=== PATIENT | female | born 1955 | race Two or more races ===

== ENCOUNTER 2024-08-31 17:35 | Inpatient (IN) | payer MEDICARE, OTHER ==
[~2024-08-31] VITALS: Ht 152.4 cm; Wt 104.8 kg
[2024-08-31] MEDS: IV NS 0.9% 1,000 ML BAG IV ONE (18:20)
[2024-08-31 18:34] LABS: BASOPHILS % (AUTO) 0.6 % (0.0-2.0); EOSINOPHILS # (AUTO) 0.1 K/uL (0.0-0.7); EOSINOPHILS % (AUTO) 0.8 % (0.0-6.0); HEMATOCRIT 40 % (33-45); HEMOGLOBIN 13.3 g/dL (11.5-14.8); LYMPHOCYTES # (AUTO) 0.7 K/uL (0.8-4.8); LYMPHOCYTES % (AUTO) 8.7 % (20.0-44.0); MEAN CORPUSCULAR HEMOGLOBIN 30 PG (26.0-33.0); MEAN CORPUSCULAR HGB CONC 34 g/dl (31.0-36.0); MEAN CORPUSCULAR VOLUME 89 fL (82-100); MONOCYTES # (AUTO) 0.6 K/uL (0.1-1.30); MONOCYTES % (AUTO) 6.9 % (2.0-12.0); PLATELET COUNT (AUTO) 260 K/uL (150-450); RED BLOOD CELL COUNT(AUTO) 4.45 MIL/uL (4.0-5.2); RED CELL DISTRIBUTION WIDTH 13.8 % (11.5-15.0); WHITE BLOOD COUNT (AUTO) 8.4 K/uL (4.3-11.0)
[2024-08-31 19:00] LABS: ALANINE AMINOTRANSFERASE 23 U/L (12-78); ALBUMIN 3.9 g/dL (3.4-5.0); ALCOHOL, BLOOD < 3 mg/dL (0-10); ALKALINE PHOSPHATASE 100 U/L (46-116); ASPARTATE AMINOTRANSFERASE 19 U/L (15-37); BILIRUBIN,DIRECT 0.2 mg/dL (0.0-0.2); CALCIUM, SERUM 9.8 mg/dL (8.5-10.1); CARBON DIOXIDE 28 mmol/L (21-32); CHLORIDE 102 mmol/L (98-107); GLUCOSE 102 mg/dL (74-106); POTASSIUM 3.3 mmol/L (3.5-5.1); SODIUM SERUM 139 mmol/L (136-145); TOTAL PROTEIN, SERUM 7.8 g/dL (6.4-8.2); UREA NITROGEN, BLOOD 21 mg/dL (7-18)
[2024-08-31 19:01] LABS: ACETAMINOPHEN 0 ug/ml (10-30); SALICYLATE 0.7 mg/dL (2.8-20.0)
[2024-08-31 20:08] LABS: APPEARANCE,URINE Clear (CLEAR); BILIRUBIN,URINE MODERATE (NEGATIVE); BLOOD, URINE Trace-intact Ery/uL (NEGATIVE); COLOR,URINE YELLOW (YELLOW); KETONES,URINE >=160 mg/dL (NEGATIVE); LEUKOCYTE ESTERASE ,URINE Negative (NEGATIVE); NITRITE, URINE Negative (NEGATIVE); PROTEIN,URINE >=300 mg/dl (NEGATIVE); UGLUCOSE Negative (NEGATIVE)
[2024-08-31 20:17] LABS: AMPHETAMINE, URINE NEGATIVE (NEGATIVE); BARBITURATE, URINE NEGATIVE (NEGATIVE); BENZODIAZEPINE, URINE NEGATIVE (NEGATIVE); CANNABINOID, URINE NEGATIVE (NEGATIVE); COCCAINE, URINE NEGATIVE (NEGATIVE); OPIATE, URINE NEGATIVE (NEGATIVE); PHENCYCLIDINE SCREEN,URINE NEGATIVE (NEGATIVE)
[2024-08-31 20:28] LABS: ADD URINE CULTURE NO; BACTERIA,URINE Few /HPF (None Seen); SQUAMOUS EPITHELIAL CELL,UR Few /HPF (None Seen)
[2024-08-31] MEDS ORDERED: MIDAZOLAM HCL 5 MG/5ML VIAL ONE (21:15)
[2024-08-31] MEDS: MIDAZOLAM HCL 5 MG/5ML VIAL IV ONE (21:20)
[2024-08-31 21:55] VITALS: O2SAT 96
[2024-08-31] MEDS ORDERED: MAG HYDROX/AL HYDROX/SIMETH 30 ML UDC PO PRN (22:30)
[2024-08-31] MEDS ORDERED: MAGNESIUM HYDROXIDE 30 ML UDC PO PRN (22:30)
[2024-08-31] MEDS ORDERED: ONDANSETRON HCL/PF 4 MG/2 ML VIAL IVP PRN (22:30)
[2024-08-31] MEDS ORDERED: Z GUARD REMEDY 4 OZ OINT TP PRN (22:30)
[2024-08-31] MEDS: CEFTRIAXONE 1GM BAG (ER ONLY) 50 ML IV ONE (23:12)
[2024-08-31] MEDS: CEFTRIAXONE 1 G in IV D5W 50 ML IV SCH (23:16)
[2024-08-31] MEDS: POTASSIUM CHLORIDE 20 MEQ TAB.PRT.SR PO ONE (23:22)
[2024-09-01 04:20] VITALS: BP 183/103; TEMP 98.8; O2SAT 96
[2024-09-01] MEDS: hydrALAZINE HCL IV 20 MG VIAL IV PRN (05:25)
[2024-09-01] MEDS ORDERED: hydrALAZINE HCL IV 20 MG VIAL IV PRN (05:30)
[2024-09-01 07:54] LABS: BASOPHILS % (AUTO) 0.5 % (0.0-2.0); EOSINOPHILS # (AUTO) 0.1 K/uL (0.0-0.7); EOSINOPHILS % (AUTO) 0.6 % (0.0-6.0); HEMATOCRIT 39 % (33-45); HEMOGLOBIN 13.2 g/dL (11.5-14.8); LYMPHOCYTES # (AUTO) 0.7 K/uL (0.8-4.8); LYMPHOCYTES % (AUTO) 7.9 % (20.0-44.0); MEAN CORPUSCULAR HEMOGLOBIN 31 PG (26.0-33.0); MEAN CORPUSCULAR HGB CONC 34 g/dl (31.0-36.0); MEAN CORPUSCULAR VOLUME 90 fL (82-100); MONOCYTES # (AUTO) 0.5 K/uL (0.1-1.30); MONOCYTES % (AUTO) 6.4 % (2.0-12.0); NEUTROPHILS # (AUTO) 7.1 K/uL (1.8-8.9); NEUTROPHILS % (AUTO) 84.6 % (43.0-81.0); PLATELET COUNT (AUTO) 252 K/uL (150-450); RED BLOOD CELL COUNT(AUTO) 4.34 MIL/uL (4.0-5.2); RED CELL DISTRIBUTION WIDTH 14.1 % (11.5-15.0); WHITE BLOOD COUNT (AUTO) 8.4 K/uL (4.3-11.0)
[2024-09-01] MEDS: PANTOPRAZOLE 40 MG TABLET.DR PO SCH (07:55)
[2024-09-01 08:05] LABS: CALCIUM, SERUM 9.7 mg/dL (8.5-10.1); CREATININE 0.9 mg/dL (0.6-1.3); POTASSIUM 3.4 mmol/L (3.5-5.1)
[2024-09-01] MEDS ORDERED: QUET300T2 PO (08:07)
[2024-09-01 08:33] LABS: THYROID STIMULATING HORMONE 0.8 uIU/mL (0.358-3.74)
[2024-09-01] MEDS: POTASSIUM CHLORIDE 20 MEQ TAB.PRT.SR PO SCH (11:02)
[2024-09-01] MEDS: hydrALAZINE HCL 50 MG TABLET PO ONE (13:00)
[2024-09-01 14:11] LABS: THYROID STIMULATING HORMONE 1.1 uIU/mL (0.358-3.74)
[2024-09-01] MEDS: AMLODIPINE BESYLATE 5 MG TABLET PO SCH (15:29)
[2024-09-01] MEDS: LOSARTAN POTASSIUM 50 MG TABLET PO SCH (15:29)
[2024-09-01] MEDS: METOPROLOL TARTRATE 50 MG TABLET PO SCH (15:30)
[2024-09-01] MEDS: CEFTRIAXONE 2 G in IV D5W 100 ML IV SCH (20:50)
[2024-09-01] MEDS ORDERED: CEFTRIAXONE 1 G in IV D5W 50 ML IV SCH (21:00)
[2024-09-02] MEDS: ACETAMINOPHEN 325 MG TABLET PO PRN (00:37)
[2024-09-02 09:09] LABS: FOLIC ACID 16.1 ng/mL (>3.0)
[2024-09-02] MEDS: LOSARTAN POTASSIUM 50 MG TABLET PO STA (11:09)
[2024-09-02] MEDS: AMLODIPINE BESYLATE 5 MG TABLET PO STA (11:09)
[2024-09-02] MEDS: NIFEdipine XL (30MG) 30 MG TAB PO SCH (11:09)
[2024-09-02 15:20] LABS: CHOLESTEROL 191 mg/dL (<200); HDL CHOLESTEROL 89 mg/dL (40-60); LDL 85 mg/dL (0-99); TRIGLYCERIDES 75 mg/dL (30-150)
[2024-09-02] MEDS: hydrALAZINE HCL 50 MG TABLET PO SCH (18:42)
[2024-09-02] MEDS: LABETALOL HCL (100MG) 100 MG TABLET PO SCH (18:43)
[2024-09-02 20:00] VITALS: BP_SYST 101; BP_SYST 117; BP_DIAS 67; BP_DIAS 76; TEMP 97.3; TEMP 98.2; O2SAT 93; O2SAT 94
[2024-09-03] VITALS: BP 102/61; TEMP 97.6; O2SAT 94
[2024-09-03 05:00] VITALS: BP 149/84; TEMP 97.9; O2SAT 97
[2024-09-03] MEDS: AMLODIPINE BESYLATE 5 MG TABLET PO SCH (09:27)
[2024-09-03] MEDS: LOSARTAN POTASSIUM 50 MG TABLET PO SCH (09:27)
[2024-09-03] MEDS: CLOTRIMAZOLE 1% 15 GM TUBE TP SCH (09:28)
[2024-09-03] MEDS ORDERED: LABE100T15 PO (13:09)
[2024-09-03] MEDS ORDERED: AMLO-212 PO (13:09)
[2024-09-03] MEDS ORDERED: LOSA50TA39 PO (13:09)
[2024-09-03] MEDS ORDERED: NIFE-35 PO (13:09)
[2024-09-03] MEDS ORDERED: CEPH-570 PO (13:09)
[2024-09-03] MEDS ORDERED: HYDR-4077 PO (13:09)
[2024-09-03 14:46] VITALS: BP 151/89
[2024-09-06 06:07] LABS: VITAMIN B1 THIAMINE,WB 209.8 nmol/L (66.5-200.0)
== END 2024-09-03 16:30 | disposition home health service (06) | DRG 77 ==
LOC: ER 17:37 → TELE 22:10 → MED 09-03 10:58
PROVIDERS: ADMIT Nurse Practitioner Family; ATTEND Nurse Practitioner Acute Care
DX: I67.4 Hypertensive encephalopathy (principal); G92.8 Other toxic encephalopathy; N39.0 Urinary tract infection, site not specified; Z68.41 Body mass index [BMI] 40.0-44.9, adult; F05 Delirium due to known physiological condition; E87.6 Hypokalemia; E66.9 Obesity, unspecified; T43.595A Adverse effect of other antipsychotics and neuroleptics, initial encounter; Y92.009 Unspecified place in unspecified non-institutional (private) residence as the place of occurrence of the external cause; E66.01 Morbid (severe) obesity due to excess calories; I10 Essential (primary) hypertension; I16.0 Hypertensive urgency; B96.89 Other specified bacterial agents as the cause of diseases classified elsewhere; F32.9 Major depressive disorder, single episode, unspecified; Z20.822 Contact with and (suspected) exposure to COVID-19
CPT/HCPCS: 36415; 70450-TC; 71045-TC; 80048-TC; 80061-TC; 80076-TC; 81001; 82607-TC; 83735-TC; 83921; 84100-TC; 84425; 84443-TC; 85025-TC; 87086-TC; 97116-TC; 97530-TC; G0378; G0480; J0360; J0696; J2250; J7030; J7040; J7060